=== PATIENT | female | born 1980 | race Caucasian/White ===

== ENCOUNTER → 2016-09-29 | Outpatient (CLI) | payer BC | LOC: KOH-I 13:18 | DX: R94.5 Abnormal results of liver function studies (principal); K76.0 Fatty (change of) liver, not elsewhere classified | CPT/HCPCS: 76705 ==

== ENCOUNTER 2016-10-05 19:28 | Emergency (ER) | payer BC | END 2016-10-05 20:50 | disposition left against medical advice (07) | LOC: ER1 19:28 | DX: Z53.21 Procedure and treatment not carried out due to patient leaving prior to being seen by health care provider (principal) ==

== ENCOUNTER 2016-10-31 19:46 | Emergency (ER) | payer BC ==
[2016-10-31 20:57] LABS: HEMOGLOBIN 14.8 gm/dl (12.3-15.3); RED BLOOD COUNT 5.28 M/UL (4.00-5.10); WHITE BLOOD COUNT 9.8 K/UL (4.5-11.0)
== END 2016-11-01 00:30 | disposition home or self-care (01) ==
LOC: ER1 19:46
PROVIDERS: Preventive Medicine Occupational Medicine
DX: R10.32 Left lower quadrant pain (principal); R31.9 Hematuria, unspecified
CPT/HCPCS: 36415; 80053; 81001; 82150; 83690; 84703; 85025; 87086; 87210; 99284

== ENCOUNTER 2016-12-05 16:50 | Emergency (ER) | payer BC ==
[2016-12-05 17:48] LABS: HEMOGLOBIN 14.1 gm/dl (12.3-15.3); RED BLOOD COUNT 5.02 M/UL (4.00-5.10); WHITE BLOOD COUNT 7.6 K/UL (4.5-11.0)
[2016-12-05 18:05] LABS: BUN/CREATININE RATIO 22 (0-10)
== END 2016-12-05 20:15 | disposition home or self-care (01) ==
LOC: ER1 16:50
PROVIDERS: Physician Assistant Medical
DX: R31.0 Gross hematuria (principal); J18.9 Pneumonia, unspecified organism; Z85.42 Personal history of malignant neoplasm of other parts of uterus
CPT/HCPCS: 36415; 80053; 81001; 82150; 83690; 85025; 85610; 85730; 87081; 87880; 99284; J7050; Q9962

== ENCOUNTER 2020-08-31 19:00 | Emergency (ER) | payer OTHER ==
[2020-08-31] MEDS ORDERED: IBUPROFEN800 MG PO (20:10)
[2020-08-31] MEDS ORDERED: CYCLOBENZAPRINE10 MG PO (20:10)
== END 2020-08-31 20:38 | disposition home or self-care (01) ==
LOC: ER1 19:00
DX: S46.911A Strain of unspecified muscle, fascia and tendon at shoulder and upper arm level, right arm, initial encounter (principal); Z90.710 Acquired absence of both cervix and uterus; X50.0XXA Overexertion from strenuous movement or load, initial encounter
CPT/HCPCS: 73030; 96372; 99283; J1885

== ENCOUNTER 2021-05-03 10:57 | Emergency (ER) | payer SELFPAY ==
[~2021-05-03 10:57] MED LIST: CYCLOBENZAPRINE10 MG PO; IBUPROFEN800 MG PO
[2021-05-03 11:31] LABS: HEMOGLOBIN 16.1 gm/dl (12.3-15.3); RED BLOOD COUNT 5.51 M/UL (4.00-5.10); WHITE BLOOD COUNT 8.6 K/UL (4.5-11.0)
[2021-05-03 11:58] LABS: BUN/CREATININE RATIO 19 (0-10)
[2021-05-03] MEDS ORDERED: TORADOL 10 MG T10 MG PO (13:25)
[2021-05-03] MEDS ORDERED: FLOMAX 0.4 MG0.4 MG PO (13:25)
[2021-05-03] MEDS ORDERED: ONDANSETRON ODT4 MG SL (13:25)
== END 2021-05-03 14:00 | disposition home or self-care (01) ==
LOC: ER1 10:57
PROVIDERS: Physician Assistant
DX: N13.2 Hydronephrosis with renal and ureteral calculous obstruction (principal); R10.814 Left lower quadrant abdominal tenderness; K76.0 Fatty (change of) liver, not elsewhere classified; Z90.710 Acquired absence of both cervix and uterus
CPT/HCPCS: 80053; 81001; 83690; 85025; 96374; 99284; J1885; Q9967

== ENCOUNTER 2021-07-15 20:20 | Emergency (ER) | payer BC ==
[~2021-07-15 20:20] MED LIST changes: +FLOMAX 0.4 MG0.4 MG PO; +ONDANSETRON ODT4 MG SL; +TORADOL 10 MG T10 MG PO
== END 2021-07-15 20:30 | disposition home or self-care (01) ==
LOC: ER1 20:20
DX: U07.1 COVID-19 (principal); Z90.710 Acquired absence of both cervix and uterus
CPT/HCPCS: 99282